=== PATIENT | female | born 1995 | race Caucasian/White ===

== ENCOUNTER 2020-02-21 18:56 | Emergency (ER) | payer OTHER ==
[2020-02-21] MEDS: KETOROLAC TROMETHAMINE INJ 30 MG/ML VIAL IV ONE (19:24)
[2020-02-21] MEDS: ONDANSETRON INJ 4 MG/2 ML VIAL IV ONE (19:25)
--- NOTE | 2020-02-21 19:36 | ED.PDOC ---
History of Present Illness - General Chief Complaint: Abdominal Pain Stated Complaint: my stomach hurts and its painful when I pee Time Seen by Provider: 02/21/20 19:16 Information Source: patient Additional Information: The patient is a 25 year old with no significant past medical problem who presents with abdominal pain and possible UTI. She states that two days ago she had an episode of painless hematuria that seemed to resolve spontaneously. She saw her primary care provider who stated that it may be a urinary tract infection and prescribed antibiotics. She states that she does not have much dysuria but that yesterday she did notice urgency and frequency. Today while at the pharmacy to fill her medications she had sudden onset right flank pain. No fever, nausea/vomiting. She is currently menstruating. No other complaints at this time. - History of Present Illness Abdominal Pain Onset Location: flank Pain Radiation: no radiation Quality: severe, sharpness Timing/Duration: 1-3 hours Improving Factors: nothing Worsening Factors: nothing Review of Systems - Review of Systems Constitutional: Denies: chills, fever EENTM: States: no symptoms reported Respiratory: States: no symptoms reported Cardiology: States: no symptoms reported Gastrointestinal/Abdominal: States: abdominal pain. Denies: diarrhea, nausea, vomiting Genitourinary: States: frequency, hematuria. Denies: dysuria Musculoskeletal: States: no symptoms reported Skin: States: no symptoms reported Neurological: States: no symptoms reported Endocrine: States: no symptoms reported Hematologic/Lymphatic: States: no symptoms reported All other Systems: Reviewed and Negative Past Medical History (General) - Patient Medical History Hx Seizures: No Hx Stroke: No Hx Dementia: No Hx Asthma: No Hx of COPD: No Hx Cardiac Disorders: No Hx Congestive Heart Failure: No Hx Pacemaker: No Hx Hypertension: No Hx Thyroid Disease: No Hx Diabetes: No Hx Gastroesophageal Reflux: No Hx Renal Disease: No Hx Cancer: No Hx of HIV: No Hx Hepatitis C: No Hx MRSA: No Surgical History: no surgical history - Vaccination History Hx Tetanus, Diphtheria Vaccination: Yes Hx Influenza Vaccination: No Hx Pneumococcal Vaccination: No Immunizations Up to Date: No - Social History Hx Tobacco Use: No Hx Alcohol Use: Yes Hx Substance Use: No Hx Substance Use Treatment: No Hx Depression: No - Female History Patient is a Female of Child Bearing Age (10 -59 yrs old): Yes Patient : No Family Medical History - Family History Mother Family History: Unknown Physical Exam - Physical Exam General Appearance: Alert, Comfortable, No apparent distress Eyes, Ears, Nose, Throat Exam: normal ENT inspection Neck: non-tender, full range of motion Respiratory: no respiratory distress Cardiovascular/Chest: regular rate, rhythm Gastrointestinal/Abdominal: normal bowel sounds, non tender, soft, no organomegaly, no pulsatile mass, other - no CVAT. No focal tenderness. Back Exam: no CVA tenderness Neurologic: no motor/sensory deficits, alert, normal mood/affect, oriented x 3 Skin Exam: normal color, warm/dry Progress - Progress Progress: 02/21/20 20:40 Patient reassessed, pain controlled. Abdominal exam is benign. CT shows obstructing stone ~3mm with hydronephrosis, no infection. Will continue outpati ent symptomatic management and she will follow up with her PCP as needed. Home care instructions and return indications reviewed. - Results/Orders Results/Orders: Laboratory Results - last 24 hr 02/21/20 02/21/20 02/21/20 19:23 19:23 19:23 WBC 10.0 RBC 4.47 Hgb 13.3 Hct 38.3 MCV 85.7 MCH 29.7 MCHC 34.6 RDW 12.9 Plt Count 347 MPV 8.5 Absolute Neuts (auto) 5.90 Absolute Lymphs (auto) 3.20 Absolute Monos (auto) 0.70 Absolute Eos (auto) 0.10 Absolute Basos (auto) 0.10 Neutrophils % 58.6 Lymphocytes % 32.4 Monocytes % 7.4 Eosinophils % 0.9 L Basophils % 0.7 Sodium 138 Potassium 3.9 Chloride 107 Carbon Dioxide 22 Anion Gap 12.9 BUN 16 Creatinine 0.66 BUN/Creatinine Ratio 24.2 H Random Glucose 84 Serum Osmolality 276.1 Calcium 9.0 Urine Color Urine Appearance Urine pH Ur Specific [place] Urine Protein Urine Glucose (UA) Urine Ketones Urine Blood Urine Nitrite Urine Bilirubin Urine Urobilinogen Ur Leukocyte Esterase Urine RBC Urine WBC Ur Epithelial Cells Urine Bacteria Urine HCG, Qual Negative 02/21/20 19:26 WBC RBC Hgb Hct MCV MCH MCHC RDW Plt Count MPV Absolute Neuts (auto) Absolute Lymphs (auto) Absolute Monos (auto) Absolute Eos (auto) Absolute Basos (auto) Neutrophils % Lymphocytes % Monocytes % Eosinophils % Basophils % Sodium Potassium Chloride Carbon Dioxide Anion Gap BUN Creatinine BUN/Creatinine Ratio Random Glucose Serum Osmolality Calcium Urine Color Dk yellow H Urine Appearance Sl cloudy Urine pH 5.5 Ur Specific [place] >= 1.030 Urine Protein 100 H Urine Glucose (UA) Negative Urine Ketones 15 H Urine Blood Large H Urine Nitrite Negative Urine Bilirubin Small H Urine Urobilinogen 0.2 Ur Leukocyte Esterase Negative Urine RBC >50 H Urine WBC 0-1 Ur Epithelial Cells 1-3 Urine Bacteria Rare Urine HCG, Qual - EKG/XRAY/CT CT: 3mm obstructing stone right ureter Departure - Departure Clinical Impression: Renal colic on right side Time of Disposition: 20:41 Disposition: Discharge to Home or Self Care Condition: Fair Departure Forms: ED Discharge - Pt. Copy, Patient Portal Self Enrollment Instructions: DI for Abdominal Pain-Adult, Renal Colic (DC) Diet: resume usual diet Activity: increase activity as tolerated Prescriptions: Acetaminophen W/ Codeine [Tylenol W/ CODEINE #3] 1 ea PO Q4HR #20 ea Ondansetron HCl [Zofran] 4 mg PO Q6HR PRN #12 tab PRN Reason: Vomiting Tamsulosin HCl [Flomax] 0.4 mg PO DAILY #10 cap Home Medications: Ambulatory Orders Acetaminophen W/ Codeine [Tylenol W/ CODEINE #3] 1 ea PO Q4HR #20 ea 02/21/20 Ondansetron HCl [Zofran] 4 mg PO Q6HR PRN #12 tab 02/21/20 Tamsulosin HCl [Flomax] 0.4 mg PO DAILY #10 cap 02/21/20 Additional Instructions: You may add 600mg ibuprofen every 6 hours in addition to the medications prescribed.
[2020-02-21 20:09] VITALS: BP 146/99
--- NOTE | 2020-02-21 20:21 | CT ---
INDICATION: Right flank pain. Assess for obstructive uropathy. PROCEDURE: CT scan of the abdomen and pelvis was performed without intravenous contrast. Stone protocol was utilized. 2.5 mm axial images were obtained along with coronal and sagittal reformatted images. DOSE OPTIMIZATION: This facility uses dose optimization techniques as appropriate to perform exams, including at least one of the following techniques: 1. Automated exposure control. 2. Adjustment of the mA and/or kV according to patient size (this includes techniques or standardized protocols for targeted exams where dose is matched to the indication/reason for exam, i.e. extremities or head). 3. Use of iterative reconstructive technique. COMPARISON: None. FINDINGS: Lung Bases: Normal. Liver: Normal. Spleen: Normal. Pancreas: Normal. Gallbladder: Normal. Adrenal Glands: Normal. Right Kidney: There is mild right hydroureteronephrosis secondary to an obstructing stone the distal right ureter located 2 cm cephalad to the UVJ. The stone measures 0.3 x 0.2 cm. Left Kidney: Normal. Right Ureter: Normal. Left Ureter: Normal. Urinary Bladder: Normal. Retroperitoneal Structures: Normal. Bowel Survey: There is increased stool within the ascending colon and hepatic flexure. The distal ileum is unremarkable. The appendix is unremarkable. Uterus and Adnexa: Normal. Peritoneal Cavity: Normal. Mesenteric Structures: Normal. Abdominal Wall: No hernia. Bony Structures: No suspicious lesions. IMPRESSION: 1. Mild right hydroureteronephrosis secondary to obstructing stone in the distal ureter. 2. Increased stool within the ascending colon and hepatic flexure. Electronically signed by: Gerry Mata MD 02/21/2020 8:20 PM CDT
[2020-02-21] MEDS: HYDROCOD/APAP 5/325 (ER DISP) #3 TAB PO ONE (20:49)
[2020-02-21 20:50] VITALS: TEMP 97.8; O2SAT 100
== END 2020-02-21 20:49 | disposition home or self-care (01) ==
LOC: ER 18:56
DX: N13.2 Hydronephrosis with renal and ureteral calculous obstruction (principal)
CPT/HCPCS: 36415; 74176; 80048; 81001; 81025; 85025; J1885; J2405